=== PATIENT | male | born 1955 | race Caucasian/White ===

== ENCOUNTER 2017-12-07 17:07 | Inpatient (IN) | payer OTHER ==
[~2017-12-07] VITALS: Ht 177.8 cm; Wt 92.0 kg
[2017-12-07] MEDS ORDERED: SODIUM CHLORIDE FLUSH 10ML SYR IVF ONE (17:30)
[2017-12-07] MEDS ORDERED: SODIUM CHLORIDE 0.9% 1,000ML IVBOLUS ONE (17:30)
[2017-12-07] MEDS ORDERED: ACETAMINOPHEN 500 MG TABLET PO ONE (17:30)
[2017-12-07] MEDS ORDERED: ACETAMINOPHEN 500 MG TABLET ONE (17:52)
[2017-12-07] MEDS: PLEASE ENTER ALLERGIES MC SCH ×2 (18:00→19:25)
[2017-12-07 18:55] LABS: BASOPHILS # (AUTO) 0.02 x10^3/uL (0-0.1); BASOPHILS % (AUTO) 0 % (0-1); EOSINOPHILS # (AUTO) 0.03 x10^3/uL (0-0.4); EOSINOPHILS % (AUTO) 1 % (1-7); LYMPHOCYTES # (AUTO) 1.27 x10^3/uL (1-3.4); LYMPHOCYTES % (AUTO) 28 % (22-44); MD NO; MEAN CORPUSCULAR HEMOGLOBIN 32.6 pg (27.5-34.5); MEAN CORPUSCULAR VOLUME 95.7 fL (81-97); MEAN PLATELET VOLUME 9.2 fL (7.4-10.4); MONOCYTES # (AUTO) 0.35 x10^3/uL (0.2-0.8); MONOCYTES % (AUTO) 8 % (2-9); NEUTROPHILS # (AUTO) 2.84 x10^3/uL (1.8-6.8); NEUTROPHILS % (AUTO) 63 % (42-75); PLATELET COUNT 134 x10^3/uL (130-400); RED BLOOD COUNT 3.34 x10^6/uL (4.38-5.82); RED CELL DISTRIBUTION WIDTH 13.9 % (9.4-14.8)
[2017-12-07 18:56] LABS: ALBUMIN 3.7 g/dL (3.4-5.0); ANION GAP 7 mmol/L (5-15); CHLORIDE 109 mmol/L (98-107)
[2017-12-07 18:59] LABS: TROPONIN I < 0.015 ng/mL (0.000-0.045)
[2017-12-07 19:24] LABS: MICROSCOPIC NOT IND
[2017-12-07 19:27] LABS: CULTURE INDICATED? NO
[2017-12-07 21:18] LABS: D-DIMER 0.73 ug/mlFEU (0.00-0.52); INTERNATIONAL NORMALIZED RATIO 1.05 (0.93-1.1); PROTHROMBIN TIME 10.8 Seconds (9.6-11.5)
[2017-12-07] MEDS ORDERED: OMNIPAQUE 350 MG/ML, 100ML BOTTLE ONE (21:24)
[2017-12-07] MEDS ORDERED: ONDANSETRON 2MG/ML, 2ML IVPush PRN (22:00)
[2017-12-07] MEDS ORDERED: POLYETHYLENE GLYCOL 17 GM PACKET PO PRN (22:00)
[2017-12-07] MEDS ORDERED: ENOXAPARIN 40 MG/0.4 ML SQ SCH (22:00)
[2017-12-07] MEDS ORDERED: ONDANSETRON ODT 4 MG PO PRN (22:00)
[2017-12-07] MEDS ORDERED: ACETAMINOPHEN 500 MG TABLET PO PRN (22:00)
[2017-12-07] MEDS ORDERED: LABETALOL 5MG/ML, 20ML IVPush PRN (22:00)
[2017-12-07 22:01] LABS: FREE T4 (FREE THYROXINE) 1.13 ng/dL (0.76-1.46); TROPONIN I < 0.015 ng/mL (0.000-0.045)
[2017-12-07] MEDS: SODIUM CHLORIDE 0.9% 1,000 ML IV SCH (22:38)
[2017-12-07 23:00] VITALS: BP_SYST 106; BP_SYST 118; BP_DIAS 68; BP_DIAS 72
[2017-12-07 23:30] VITALS: BP 112/71
[2017-12-07] MEDS: THIAMINE 100MG TABLET PO SCH (23:52)
[2017-12-08 02:49] LABS: RAPID INFLUENZA A Negative (Negative); RAPID INFLUENZA B Negative (Negative)
[2017-12-08 03:59] LABS: BASOPHILS # (AUTO) 0.02 x10^3/uL (0-0.1); BASOPHILS % (AUTO) 1 % (0-1); EOSINOPHILS # (AUTO) 0.07 x10^3/uL (0-0.4); EOSINOPHILS % (AUTO) 2 % (1-7); LYMPHOCYTES # (AUTO) 1.56 x10^3/uL (1-3.4); LYMPHOCYTES % (AUTO) 40 % (22-44); MD NO; MEAN CORPUSCULAR HEMOGLOBIN 33.9 pg (27.5-34.5); MEAN CORPUSCULAR HGB CONC 35.2 g/dL (33.2-36.2); MEAN CORPUSCULAR VOLUME 96.3 fL (81-97); MEAN PLATELET VOLUME 9.4 fL (7.4-10.4); MONOCYTES # (AUTO) 0.31 x10^3/uL (0.2-0.8); MONOCYTES % (AUTO) 8 % (2-9); NEUTROPHILS # (AUTO) 1.94 x10^3/uL (1.8-6.8); NEUTROPHILS % (AUTO) 50 % (42-75); PLATELET COUNT 113 x10^3/uL (130-400); RED BLOOD COUNT 3.08 x10^6/uL (4.38-5.82); RED CELL DISTRIBUTION WIDTH 14.2 % (9.4-14.8)
[2017-12-08 04:11] LABS: ALBUMIN 3.2 g/dL (3.4-5.0); ANION GAP 6 mmol/L (5-15); CALCIUM 8.2 mg/dL (8.5-10.1); CHLORIDE 108 mmol/L (98-107)
[2017-12-08 04:14] LABS: % IRON SATURATION 43 % (20-55); ALANINE AMINOTRANSFERASE 45 U/L (12-78); ALKALINE PHOSPHATASE 70 U/L (45-117); BILIRUBIN,TOTAL 2.3 mg/dL (0.2-1.0); CREATININE 0.96 mg/dL (0.7-1.3); IRON LEVEL 103 mcg/dL (65-175); TOTAL IRON BINDING CAPACITY 240 mcg/dL (250-450); TOTAL PROTEIN 5.9 g/dL (6.4-8.2); TROPONIN I < 0.015 ng/mL (0.000-0.045)
[2017-12-08] MEDS: SODIUM CHLORIDE 0.9% 1,000 ML IV SCH ×2 (05:08→12:47)
[2017-12-08 05:11] VITALS: BP 116/74
[2017-12-08 05:12] VITALS: BP 127/75
[2017-12-08 05:13] VITALS: BP 131/79
[2017-12-08 05:30] VITALS: BP_SYST 116; BP_SYST 127; BP_SYST 131; BP_DIAS 74; BP_DIAS 75; BP_DIAS 79
[2017-12-08] MEDS ORDERED: HYDR12.53 PO (08:00)
[2017-12-08] MEDS ORDERED: LEVO25TA2 PO (08:00)
[2017-12-08] MEDS ORDERED: LISI5TAB7 PO (08:00)
[2017-12-08 08:08] VITALS: BP_SYST 115; BP_SYST 117; BP_SYST 129; BP_DIAS 66; BP_DIAS 72
[2017-12-08] MEDS: THIAMINE 100MG TABLET PO SCH (08:57)
[2017-12-08] MEDS ORDERED: SENNA/DOCUSATE TABLET PO SCH (09:00)
[2017-12-08] MEDS ORDERED: FOLIC ACID 1 MG TABLET PO SCH (09:00)
[2017-12-08] MEDS ORDERED: LEVOTHYROXINE 50 MCG TABLET PO ONE (13:00)
[2017-12-08 15:19] VITALS: BP 105/67
[2017-12-09] MEDS ORDERED: LEVOTHYROXINE 50 MCG TABLET PO SCH (06:00)
== END 2017-12-08 17:44 | disposition home or self-care (01) | DRG 312 ==
LOC: ED 18:14 → EDIP 20:11 → 4EST 21:44 → 5SO 23:31
PROVIDERS: ADMIT Internal Medicine; ATTEND Hospitalist
DX: R55 Syncope and collapse (principal); E44.0 Moderate protein-calorie malnutrition; R17 Unspecified jaundice; E03.9 Hypothyroidism, unspecified; D63.8 Anemia in other chronic diseases classified elsewhere; E86.0 Dehydration; G43.909 Migraine, unspecified, not intractable, without status migrainosus; R50.9 Fever, unspecified; I10 Essential (primary) hypertension; G60.0 Hereditary motor and sensory neuropathy; Z68.29 Body mass index [BMI] 29.0-29.9, adult
CPT/HCPCS: 36415; 70450; 71045; 71275; 80048; 80053; 81003; 82040; 82728; 83540; 83550; 83605; 83735; 84100; 84439; 84443; 84484; 85025; 85379; 85610; 85730; 87040; 87400; 93005; 93306; 93880; 95819; 99285; J1650; Q9967; J7030